=== PATIENT | female | born 1990 | race Caucasian/White ===

== ENCOUNTER → 2016-12-23 | Outpatient (CLI) | payer OTHER ==
[~2016-12-23] VITALS: Ht 167.6 cm; Wt 122.5 kg
[~2016-12-23] MED LIST: NOHOMEMEDS; ULTRAM50 MG PO
== END | disposition home or self-care (01) ==
LOC: AMB 12-16 12:30
PROC: 0DB68ZX Excision of Stomach, Via Natural or Artificial Opening Endoscopic, Diagnostic (ICD-10-PCS; principal; 2016-12-23)
DX: K44.9 Diaphragmatic hernia without obstruction or gangrene (principal); K21.9 Gastro-esophageal reflux disease without esophagitis; E66.01 Morbid (severe) obesity due to excess calories; Z68.42 Body mass index [BMI] 45.0-49.9, adult; Z80.9 Family history of malignant neoplasm, unspecified
CPT/HCPCS: 88305; 88342 TC; J2250

== ENCOUNTER 2017-02-11 09:20 | Inpatient (IN) | payer OTHER ==
[~2017-02-11] VITALS: Ht 167.6 cm; Wt 124.3 kg
[2017-02-11 13:03] VITALS: BP 121/80
[2017-02-11 16:20] VITALS: BP 141/73
[2017-02-11 17:19] LABS: POINT-OF-CARE METER ID UU14162508
[2017-02-11 19:27] VITALS: BP 130/69
[2017-02-11 23:14] VITALS: BP 135/72
[2017-02-11 23:27] LABS: POINT-OF-CARE METER ID UU14162508
[2017-02-12 03:29] VITALS: BP 118/75
[2017-02-12 05:53] LABS: POINT-OF-CARE METER ID UU14162508
[2017-02-12 06:50] LABS: HEMATOCRIT 38.2 % (36.0-46.0); MCH 28.3 PG (29.0-34.0); MCV 85.7 FL (83-99); MEAN PLAT.VOLUME 9.3 uM^3 (9.5-12.4); PLATELET COUNT 324 K/uL (156-360); RBC DIS.WIDTH-SD 37.5 % (39-53); RED BLOOD COUNT 4.46 M/uL (3.80-5.20)
[2017-02-12 07:08] LABS: WHITE BLOOD COUNT 19.9 K/uL (4.1-10.2)
[2017-02-12 07:14] VITALS: BP 133/66
[2017-02-12 07:18] LABS: ANION GAP 11 MEQ/L (2-14); CHLORIDE 101 MEQ/L (99-109); GFR ESTIMATE (CALCULATED) > 59 mL/min/; GLUCOSE 120 mg/dL (70-99); MAGNESIUM 1.6 mg/dl (1.3-2.7); POTASSIUM 4.5 MEQ/L (3.7-5.4); SAMPLE HEMOLYSIS CHECK 0; SAMPLE ICTERIC CHECK 0; SAMPLE LIPEMIA CHECK 0; SODIUM 133 MEQ/L (136-147); UREA NITROGEN (BUN) 10 mg/dL (9-23)
[2017-02-12] MEDS ORDERED: HYDROCODON-ACE1 EAC7 PO (07:24)
[2017-02-12 11:57] VITALS: BP 141/80
[2017-02-12 12:10] LABS: POINT-OF-CARE METER ID UU14162508
== END 2017-02-12 14:03 | disposition home or self-care (01) | DRG 621 ==
LOC: 2SOUTH 09:20 → 2EAST 12:09 → 2SOUTH 12:09 → 2EAST 16:09
PROVIDERS: Surgery
PROC: 0DB64Z3 Excision of Stomach, Percutaneous Endoscopic Approach, Vertical (ICD-10-PCS; principal; 2017-02-11)
DX: E66.01 Morbid (severe) obesity due to excess calories (principal); Z68.42 Body mass index [BMI] 45.0-49.9, adult
CPT/HCPCS: 36415; 80048; 80053; 82948; 83735; 84100; 84702; 85025; 85027; 85610; 85730; C9113; J0330; J0690; J1100; J1170; J1644; J1650; J1815; J1885; J2250; J2270; J2405; J2550; J2710; J2765; J3010; J3480; J7120; Q0169; S0020